=== PATIENT | female | born 1965 | race Caucasian/White ===

== ENCOUNTER 2020-01-09 11:38 | Outpatient (CLI) | payer OTHER, SELFPAY ==
--- NOTE | 2020-01-09 12:00 | DI.RAD_ITS ---
EXAM: XR SHOULDER RT COMPLETE 2+V INDICATION: pain. COMPARISON: No exams were available for comparison TECHNIQUE: 2D digital imaging was performed. FINDINGS: There is mild spurring at the AC joint. Minimal spurring is seen at the inferior glenoid. The gleno humeral joint is not well profiled. There is mild spurring at the greater tuberosity. No tendon or joint space calcifications are seen. IMPRESSION: Mild degenerative changes.
== END 2020-01-09 11:58 ==
PROVIDERS: Visit Provider Orthopaedic Surgery
DX: M25.511 Pain in right shoulder (principal); M19.011 Primary osteoarthritis, right shoulder
CPT/HCPCS: 73030

== ENCOUNTER 2020-06-17 07:50 | Outpatient (CLI) | payer OTHER, SELFPAY ==
[2020-06-19 17:24] LABS: COVID-19 RT-PCR Result NEGATIVE (Negative)
== END 2020-06-17 08:10 ==
PROVIDERS: PCP Neuromusculoskeletal Medicine & OMM; Visit Provider Student in an Organized Health Care Education/Training Program
DX: M19.011 Primary osteoarthritis, right shoulder (principal); M75.21 Bicipital tendinitis, right shoulder; M75.41 Impingement syndrome of right shoulder; S46.011A Strain of muscle(s) and tendon(s) of the rotator cuff of right shoulder, initial encounter; Z01.818 Encounter for other preprocedural examination
CPT/HCPCS: U0003

== ENCOUNTER 2020-06-20 06:05 | Day surgery (SDC) | payer OTHER, SELFPAY ==
[2020-06-20] VITALS (11 sets, daily range): BP systolic 82–146; BP diastolic 36–79; PULSE 68–80; RESP 18–30; TEMP 36.2–36.6; O2SAT 89–100
[2020-06-20] MEDS: Lactated Ringers 1,000 ML 100 ML IV ×2 (06:38→11:37)
[2020-06-20] MEDS: Bupivacaine LIPOSOME/PF 133 MG/10 ML VIAL IJ (07:22)
[2020-06-20] MEDS: Bupivacaine 0.5% Pres-Free 30 ML VIAL (07:22)
[2020-06-20] MEDS: ceFAZolin 2 GM/50 ML BAG IVPB (08:00)
[2020-06-20] MEDS: EPINEPHrine 30 MG/30 ML VIAL (08:40)
--- NOTE | 2020-06-20 11:38 | W.PM.DSUDISC ---
Discharge Plan Disposition Patient Disposition: HOME Condition: Stable Discharge Details Reason For Visit: Right shoulder surgery Attending Provider: Asad Garrison Primary Care Provider: Jose Reynolds Home Meds and New Rx's Prescriptions: New naproxen 250 mg tablet 250 - 500 mg PO BID PRN (Reason: Moderate pain or swelling) Qty: 60 RF: 0 aspirin 81 mg tablet,delayed release (DR/EC) 81 mg PO DAILY 14 Days Qty: 14 RF: 0 oxycodone 5 mg tablet 5 - 10 mg PO Q4H PRN (Reason: moderate to severe pain) Qty: 22 RF: 0 Continued acetaminophen [Tylenol Extra Strength] 500 mg tablet 1,000 mg PO TID PRNRF: 0 Discharge Instructions Additional Instructions: Surgery: Shoulder arthroscopy with rotator cuff repair, distal clavicle excision, biceps tenodesis, extensive debridement, and subacromial decompression. Activity: You should keep your arm at your side in a neutral position at all times except for physical therapy. Do not try to lift or raise your arm using your own muscles. You should use the sling whenever you are out of the house. You may have to adjust the abduction pillow or remove it for comfort. At home it is best to remove the sling and rest the arm on a pillow at your side or support the operative side with your other hand. You may allow the arm to dangle at your side. A physical therapy prescription will be provided separately today. Prescriptions: Aspirin 81 mg take 1 daily to prevent a blood clot for 2 weeks Naproxen 250 mg take 1-2 every 12 hours with a meal as needed for moderate pain Oxycodone 5 mg take 1-2 every 4-6 hours as needed for severe pain You may use [id number] Tylenol (acetaminophen) as needed for mild pain. These pain medications may be taken all at once or in different combinations as needed. Also, recommend Colace (docusate) as a stool softener as surgery and pain medicine cause constipation. Dressings: Remove shoulder bandage after 3 days. Leave the sticky Steri-Strips in place until they fall off or remove them after you shower. Cover the incisions with Band-Aids or leave them open to air. The biceps bandage (inside upper arm) is glued on separately. You may leave this one on a few days longer if it is difficult to remove. There is also glue underneath this bandage that can be left in place until it peels off. You may shower after 5 days. Follow-up: 10-[address] Garrison You may take off the leg compression stockings this evening at home. You may also leave them on a few days longer if you have a history of leg swelling or edema. Let us know right away if you develop any redness, drainage, fevers, chest pain, or trouble breathing. Do not drink alcohol or drive for at least 24 hours after anesthesia. Please call the office during business hours with any questions or concerns. Referrals: Asad Garrison MD [ [facility] STAFF PHYSICIAN] - Discharge Orders Discharge Orders: Discharge Order (Routine); Ordered 06/20/20 Ordered By: Asad Garrison DS: Diagnosis Discharge Diagnosis (1) Impingement syndrome of right shoulder: Status: Acute (2) Arthritis of right acromioclavicular joint: Status: Acute (3) Tendonitis of long head of biceps brachii of right shoulder: Status: Acute (4) Traumatic tear of right rotator cuff: Status: Acute
--- NOTE | 2020-06-20 11:56 | ROE_ITS ---
Date of service: 06/20/20 Time of Service: 11:38 Operative Note Operative Note DATE OF PROCEDURE: 06/20/20 PRE-OP DIAGNOSIS: Right: 1. Rotator cuff tear 2. LHB tendinopathy 3. AC joint arthritis 4. Impingement POST-OP DIAGNOSIS: same PROCEDURE: Right: 1. Rotator cuff repair, CPT# 28622. This involved repair of thesupraspinatus using anchors and sutures to reattach the rotator cuff back to the footprint of the greater tuberosity. 2. Open biceps tenodesis, CPT# 12496. This involved reattaching the long head of the biceps tendon to the proximal humerus in the sub-pectoral area of the bicipital groove at the correct tension. 3. Extensive debridement, CPT# 65582. This involved using arthroscopic hand instruments, power instruments, and radiofrequency instruments to release to rel ease the long head of the biceps tendon and debride areas of labral tearing, synovitis, and partial articular rotator cuff tearing within the glenohumeral joint anteriorly, superiorly and posteriorly. 4. Subacromial decompression with partial acromioplasty, CPT# 34370. This involved using arthroscopic power instruments and a radiofrequency wand to complete a bursectomy and remove bone spurs on the undersurface of the acromion. 5. Arthroscopic distal clavicle excision, CPT# 45620. This involved arthroscopically exposing the underside of the acromioclavicular joint, smoothing out bone spurs, and using a jessica to remove approximately 5 mm of the distal clavicle so there was no bone left engaging the acromion. The assistant women's rowing coach was medically required in order to help assist in techniques above, which require positioning the arm, holding the arthroscope, and manipulating 2 to 4 instruments and sutures at the same time. This cannot be done without the help of an experienced assistant women's rowing coach. SURGEON: Asad Garrison [employer] B[employer] DIRECTOR: Meeta Boyce ANESTHESIA: GETA and regional ESTIMATED BLOOD LOSS: 10 PATHOLOGY: none sent COMPLICATIONS: None Patient was transported to: PACU Patient's condition: stable Implants: Arthrex: 4.75mm SwiveLocks x 2 and Unicortical Proximal Biceps Tenodesis Button Indications: The patient was diagnosed with the above conditions and appropriately indicated for surgical intervention. Please see complete medical record for details. Findings: Exam under anesthesia: Full symmetrical range of motion, no instability Glenohumeral joint: Significant anterior synovitis. Significant frayed and detached superior labrum SLAP tear and absent anterior labrum with Pengilly cordlike MGHL complex. Biceps tendon injection synovitis about the intra- articular groove. Minor partial articular sided supraspinatus and infraspinatus fraying with no more than 1-2 mm of tissue or footprint involvement. Intact subscapularis. Intact glenoid humeral head cartilage surfaces. Subacromial space: Moderate undersurface acromial bone spur and significant undersurface hypertrophic impinging undersurface distal clavicle engaging the acromion. Moderate bursitis. Approximately 75% thickness distal supraspinatus tear central and posterior near largely intact wrapping around infraspinatus fibers. Tear size approximately 5 mm anterior the posterior and 10 mm medial lateral. Procedure Description: In the operating room, general anesthesia was induced. Bilateral shoulders were examined. The patient was positioned in the beachchair position. All bony prominences were well-padded. Preoperative antibiotics were administered. The shoulder was prepped and draped in the usual sterile fashion. The correct patient, procedure, and side of the procedure were all verified prior to incision. Starting through the posterior portal a standard complete diagnostic arthroscopy was performed of the glenohumeral joint including inspection of the long head of the biceps, anterior and superior labrum, subscapularis tendon, supraspinatus and infraspinatus tendons, and axillary recess. The glenoid and humeral head cartilage as well as the posterior labrum were inspected from an anterior viewing portal. Significant findings and interventions noted above. The biceps tendon was released from the superior labrum using arthroscopic scissors. 10 cc of 0.5% bupivacaine with epinephrine was infiltrated about a 2 to 3 cm longitudinal incision at the inferior margin of the pectoralis major localized over the long head of the biceps tendon. Blunt and sharp dissection were used to expose the tendon in the bicipital groove. The tendon was brought out of the wound and kept off the skin on top of a blue towel. The correct location for sub-pectoral fixation was localized, prepped with a rasp, and then drilled with a 3.2 mm drill pin in a unicortical fashion. Using a fiber loop suture the tendon was prepped from the musculotendinous junction a few centimeters proximal. The excess tendon was amputated. The free suture ends were then passed through the unicortical button implant. The drill pin was removed and the implant was placed into the humeral intramedullary canal. The button was fl ipped and the sutures were tensioned bringing the tendon down to bone. Tension and fixation were then tested and found to be appropriate. Sutures passed on either end of the tendon and the free ends of the suture were were tied compressing tendon to the humerus. The wound was copiously irrigated with normal saline. Subcutaneous tissue was closed using 3-0 Monocryl in a buried interrupted fashion. Skin was closed using 3-0 Monocryl in a buried subcuticular running fashion. Skin glue was applied over the incision. Mastisol was applied about the incision. The incision was covered with Telfa, gauze, and covered with a Tegaderm dressing. Starting through the posterior portal, the arthroscope was directed into the subacromial space. A lateral 50 yard line lateral portal was created. A combination of power instruments and a radiofrequency ablator were used to debride bursitis anteriorly, posteriorly, and laterally as well as expose and smooth bone spurring on the undersurface of the acromion. The coracoacromial ligament was partially released. The bursectomy was completed viewing laterally and working from posteriorly and the rotator cuff was thoroughly inspected with findings noted above. The anterior portal was redirected towards the undersurface of the AC joint. A shaver and electrocautery device were used to clear soft tissue from the undersurface of the AC joint. A jessica was then inserted and used to remove the distalmost 5 mm of the distal clavicle. Care was taken to alternate between working through the anterior portal and viewing through the anterior portal to ensure that proper amount of bone was removed and there was no engaging bone left behind especially superiorly. Cannulas were inserted at the anterior and superior posterior lateral margins of the acromion as well as at the lateral 50 yard line portal. The rotator cuff tear was inspected and the distal lateral supraspinatus tear was carefully probed and exposed after being hidden by a thin bursal bursal layer. The margins were carefully defined through combination of sharp elevation and debridement. The most medial tissue insertion layer was firm, strong and left intact. The greater was tuberosity cleared of fibrous tissue over the footprint and the bursectomy was extended laterally. A punch was used to localize placement a medial row anchor starting that was loaded with fiber tape. A self retrieving suture passer was used to sequentially pass both ends of this fiber tape through all layers of the tendon anteriorly and posteriorly at the tear margins at the appropriate level medially. Next, a self retrieving suture passer was used to pass fiber link sutures in cinch mode between the fiber tapes. The rotator cuff tear was reduced and compressed over the lateral extent of the footprint and both ends of the FiberTape and the FiberLink sutures were secured to a lateral row suture anchor. Lastly, a knotless repair stitch from the lateral anchor was brought through the most posterior and lateral aspect of the tear in the margin the supraspinatus infraspinatus while considering a dog ear repair suture. Unfortunate, the suture pulled out of the anchor prior to fixating the small margin and cuff of tissue. The repair was inspected through shoulder range of motion and found to be stable with secure fixation. There was no significant gapping or dogear. Decision was made to omit additional suture fixation and additional suture anchor placement. The shoulder was drained of arthroscopic fluid. All portal sites were copiously irrigated. These incisions were closed using 3-0 Monocryl in a buried fashion, covered with Mastisol, Steri-Strips, Xeroform, dry gauze, and ABDs. The dressings were covered and secured with Medipore tape. The operative extremity was placed into a sling for immobilization. The patient awoke from anesthesia without complication and was transferred to the recovery room in a stable condition.
== END 2020-06-20 14:35 | disposition home or self-care (01) ==
PROVIDERS: PCP Neuromusculoskeletal Medicine & OMM; Visit Provider Student in an Organized Health Care Education/Training Program
PROC: (CPT 29827; principal; 2020-06-20 07:30)
PROC: (CPT 23430; 2020-06-20 07:30)
DX: S46.011A Strain of muscle(s) and tendon(s) of the rotator cuff of right shoulder, initial encounter (principal); M75.41 Impingement syndrome of right shoulder; M19.011 Primary osteoarthritis, right shoulder; M75.21 Bicipital tendinitis, right shoulder; S43.431A Superior glenoid labrum lesion of right shoulder, initial encounter; X50.0XXA Overexertion from strenuous movement or load, initial encounter; G89.18 Other acute postprocedural pain; Y99.0 Civilian activity done for income or pay; M65.811 Other synovitis and tenosynovitis, right shoulder; M75.51 Bursitis of right shoulder; F17.210 Nicotine dependence, cigarettes, uncomplicated
CPT/HCPCS: 29827; 29823; 29826; 23430; 29824; 76942; J0690; J1100; J1885; J2001; J2250; J2370; J2405; J3010